=== PATIENT | male | born 2000 | race Two or more races ===

== ENCOUNTER 2022-05-18 08:54 | Emergency (ER) | payer BC ==
[2022-05-18 08:59] VITALS: TEMP 98
[2022-05-18] MEDS ORDERED: LIDOCAINE 1% INJ 10MG/ML (20 ML MDV) SQ ONE (09:14)
--- NOTE | 2022-05-18 09:18 | ED ---
General Adult HPI - General Chief complaint: Wound/Laceration Stated complaint: head injury Time Seen by Provider: 05/18/22 09:00 Source: patient, RN notes reviewed Mode of arrival: ambulatory Limitations: no limitations - History of Present Illness Initial comments: 22-year-old male presents emergency Department with chief complaint of head injury. Patient states he slipped on some water at a constitution party in [place]. Patient states that he fell striking his head in the loss conscious. Patient laceration right side of his head. Patient's tetanus is up-to-date. Patient states his happened 8 hours ago. Patient is complaining of slight headache and nausea but states is may related to alcohol intake. Patient denies any blurred vision no focal weakness no other complaints. - Related Data Allergies Allergy/AdvReac Type Severity Reaction Status Date / Time amoxicillin [From Augmentin] AdvReac Nausea & Verified 05/18/22 08:59 Vomiting clavulanic acid AdvReac Nausea & Verified 05/18/22 08:59 [From Augmentin] Vomiting Review of Systems ROS Statement: Those systems with pertinent positive or pertinent negative responses have been documented in the HPI. ROS Other: All systems not noted in ROS Statement are negative. Past Medical History Past Medical History: No Reported History History of Any Multi-Drug Resistant Organisms: None Reported Past Surgical History: Orthopedic Surgery Smoking Status: Never smoker Past Alcohol Use History: Occasional Past Drug Use History: None Reported General Exam Limitations: no limitations General appearance: alert, in no apparent distress Head exam: Present: atraumatic, normocephalic, normal inspection Eye exam: Present: normal appearance, PERRL, EOMI, other (3 cm periorbital laceration right). Absent: scleral icterus, conjunctival injection, periorbital swelling ENT exam: Present: normal exam, normal oropharynx, mucous membranes moist Neck exam: Present: normal inspection, full ROM. Absent: tenderness, meningismus, lymphadenopathy Respiratory exam: Present: normal lung sounds bilaterally. Absent: respiratory distress, wheezes, rales, rhonchi, stridor Cardiovascular Exam: Present: regular rate, normal rhythm, normal heart sounds. Absent: systolic murmur, diastolic murmur, rubs, gallop, clicks Neurological exam: Present: alert, oriented X3, CN II-XII intact, reflexes normal. Absent: motor sensory deficit Skin exam: Present: warm, dry, intact, normal color. Absent: rash Course Vital Signs 05/18/22 08:57 Temperature 98 F Pulse Rate 83 Respiratory 20 Rate Blood Pressure 115/73 O2 Sat by Pulse 99 Oximetry Procedures - Laceration Laceration #1 Consent Obtained: verbal consent Indication: laceration Site: face Size (cm): 3 Description: irregular Depth: simple, single layer Anesthetic Used: lidocaine 1%, without epi Anesthesia Technique: local infiltration Amount (mls): 5 Pre-repair: wound explored, irrigated extensively, deep structures intact Type of Sutures: nylon Size of Sutures: 6-0 Number of Sutures: 7 Technique: simple, interrupted Patient Tolerated Procedure: well, no complications Medical Decision Making - Medical Decision Making 21-year-old presented for laceration CT was obtained secondary to head trauma CT is negative laceration was repaired wound care instruction provided. Return parameters were provided. Disposition Clinical Impression: Facial laceration Disposition: HOME SELF-CARE Condition: Stable Instructions (If sedation given, give patient instructions): Care For Your Stitches (ED), Facial Laceration (ED) Additional Instructions: Have sutures removed in 7 days.Please return to the Emergency Department if symptoms worsen or any other concerns. Is patient prescribed a controlled substance at d/c from ED?: No Referrals: None,Stated [Primary Care Provider] - 1-2 days
--- NOTE | 2022-05-18 09:31 | CT ---
EXAMINATION TYPE: CT brain wo con DATE OF EXAM: 05/18/2022 COMPARISON: None. HISTORY: Right eye laceration injury with headache. CT DLP: 1113.8 mGycm. Automated Exposure Control for Dose Reduction was Utilized. TECHNIQUE: CT scan of the head is performed without contrast. FINDINGS: There is no acute intracranial hemorrhage, mass effect, or midline shift identified. The ventricles and sulci are within normal limits in size. Gallardo-white matter differentiation is maintain ed. The globes are intact and the visualized sinuses are clear. IMPRESSION: Unremarkable study.
[2022-05-18] MEDS ORDERED: BACITRACIN OINT 1 EACH PACKET TOPICAL ONE (10:04)
[2022-05-18] MEDS ORDERED: ONDANSETRON ODT 4 MG TAB PO STA (10:04)
[2022-05-18 10:18] VITALS: BP 122/64; PULSE 70; RESP 16
== END 2022-05-18 10:19 | disposition home or self-care (01) ==
LOC: EC 08:54
DX: S01.81XA Laceration without foreign body of other part of head, initial encounter (principal); Z88.6 Allergy status to analgesic agent; Z88.1 Allergy status to other antibiotic agents; W01.10XA Fall on same level from slipping, tripping and stumbling with subsequent striking against unspecified object, initial encounter
CPT/HCPCS: 99283; 12013; 70450; J2001